=== PATIENT | male | born 1960 | race Caucasian/White ===

== ENCOUNTER 2022-02-24 13:11 | Inpatient (IN) ==
[2022-02-24 18:17] LABS: BASOPHILS % (AUTO) 0.4 % (0.2-1.0); EOSINOPHILS # (AUTO) 0.2 x10^3/uL (0.0-0.2); EOSINOPHILS % (AUTO) 2.6 % (0.9-2.9); HEMATOCRIT 47.4 % (42.0-54.0); HEMOGLOBIN 16.6 g/dL (13.5-18.0); LYMPHOCYTES # (AUTO) 1.9 X10^3/uL (1.3-2.9); LYMPHOCYTES % (AUTO) 20.7 % (21.0-51.0); MEAN CORPUSCULAR HEMOGLOBIN 32.5 pg (27.0-34.0); MEAN CORPUSCULAR HGB CONC 34.9 g/dL (33.0-35.0); MEAN CORPUSCULAR VOLUME 93.1 fL (80.0-100.0); MEAN PLATELET VOLUME 9.6 fL (7.4-11.0); MONOCYTES # (AUTO) 0.8 x10^3/uL (0.3-0.8); MONOCYTES % (AUTO) 9.1 % (0.0-13.0); NEUTROPHILS % (AUTO) 67.2 % (42.0-75.0); RED BLOOD COUNT 5.09 X10^6/uL (4.7-6.0); RED CELL DISTRIBUTION WIDTH 12.4 % (11.6-16.5)
[2022-02-24 18:25] LABS: ALANINE AMINOTRANSFERASE 107 Units/L (12-78); ALBUMIN 4.5 g/dL (3.4-5.0); ALKALINE PHOSPHATASE 74 Units/L (46-116); ASPARTATE AMINO TRANSFERASE 73 Units/L (15-37); BLOOD UREA NITROGEN 20 mg/dL (7-18); CALCIUM 8.8 mg/dL (8.5-10.1); CARBON DIOXIDE 29.7 mmol/L (21-32); CHLORIDE 97 mmol/L (98-107); CREATININE 1.24 mg/dL (0.70-1.30); SODIUM 134 mmol/L (136-145); TOTAL PROTEIN 8.3 g/dL (6.4-8.2); eGFR NON BLACK RACES > 60 (>60)
[2022-02-24] MEDS: LIPITOR TAB 40 MG PO SCH (20:37)
[2022-02-24] MEDS: XANAX PO PRN (20:37)
[2022-02-24] MEDS: CHECK PATCH XX SCH (20:38)
[2022-02-25 06:34] LABS: BASOPHILS % (AUTO) 0.2 % (0.2-1.0); EOSINOPHILS # (AUTO) 0.3 x10^3/uL (0.0-0.2); EOSINOPHILS % (AUTO) 3.4 % (0.9-2.9); HEMATOCRIT 46.4 % (42.0-54.0); HEMOGLOBIN 16.1 g/dL (13.5-18.0); LYMPHOCYTES # (AUTO) 1.6 X10^3/uL (1.3-2.9); LYMPHOCYTES % (AUTO) 20.4 % (21.0-51.0); MEAN CORPUSCULAR HEMOGLOBIN 32.3 pg (27.0-34.0); MEAN CORPUSCULAR HGB CONC 34.6 g/dL (33.0-35.0); MEAN CORPUSCULAR VOLUME 93.2 fL (80.0-100.0); MEAN PLATELET VOLUME 10.2 fL (7.4-11.0); MONOCYTES # (AUTO) 0.8 x10^3/uL (0.3-0.8); MONOCYTES % (AUTO) 9.4 % (0.0-13.0); NEUTROPHILS # (AUTO) 5.3 x10^3/uL (2.2-4.8); NEUTROPHILS % (AUTO) 66.6 % (42.0-75.0); RED BLOOD COUNT 4.98 X10^6/uL (4.7-6.0); RED CELL DISTRIBUTION WIDTH 12.4 % (11.6-16.5)
[2022-02-25 06:42] LABS: ALANINE AMINOTRANSFERASE 133 Units/L (12-78); ALBUMIN 4.2 g/dL (3.4-5.0); ALKALINE PHOSPHATASE 74 Units/L (46-116); ASPARTATE AMINO TRANSFERASE 94 Units/L (15-37); BLOOD UREA NITROGEN 19 mg/dL (7-18); CALCIUM 8.9 mg/dL (8.5-10.1); CARBON DIOXIDE 29.1 mmol/L (21-32); CHLORIDE 100 mmol/L (98-107); CREATININE 1.03 mg/dL (0.70-1.30); SODIUM 136 mmol/L (136-145); TOTAL PROTEIN 7.9 g/dL (6.4-8.2); eGFR NON BLACK RACES > 60 (>60)
[2022-02-25] MEDS: ASPIRIN PO SCH (08:36)
[2022-02-25] MEDS: ZYLOPRIM PO SCH (08:36)
[2022-02-25] MEDS: NORVASC TAB 10 MG PO SCH (08:37)
[2022-02-25] MEDS: PROTONIX TAB 40 MG PO SCH (08:37)
[2022-02-25] MEDS: COZAAR PO SCH (08:38)
[2022-02-25] MEDS: NICOTINE PATCH TD SCH ×2 (08:38→08:43)
[2022-02-25] MEDS: CHECK PATCH XX SCH ×2 (08:43→20:41)
[2022-02-25] MEDS: MOTRIN TAB 800 MG PO PRN ×2 (09:02→20:40)
[2022-02-25] MEDS: PLAVIX PO SCH (09:03)
[2022-02-25 09:08] VITALS: BMI 24.5
--- NOTE | 2022-02-25 11:55 | PT/OTEVAL ---
PT/OT OBJECTIVES - HISTORY Prescription: PT Consult Diagnosis: Acute CVA with L Residual Deficits Precautions: Fall Risk, L Hemiplegia s/p CVA, Severe Claustrophobia PMH: HTN, Anxiety, Claustrophobia Prior Level of Function: Independent Other: Per pt report, prior to CVA he was independent with all mobility tasks within home and community without an assistive device. 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 Pt resides in single story home with 5 steps to enter (without HR) with his . No DME. States that his son will be building a handrail for him prior to discharge home. - COGNITION Mental Status: Alert, Oriented, Name, Date, Place, Purpose Communication Status: Verbal Ability to Follow Directions: 3 Step Memory Loss: None - AWARENESS Left Comments: Pt requires minimal cues to for LLE placement during standing tasks and for LUE. Pt's LUE is currently flaccid. - PAIN Back Pain Scale: Discomfort (1-2) Comments: Reports chronic back pain - TRANSFERS Supine to Sit: Minimal Sit to Stand: Minimal Sit or Stand Pivot: Minimal - BALANCE Static Sitting: Good Standing: Fair Balance Comment: Standing: Fair- Dynamic Sitting: Good Standing: Poor - NEUROMOTOR/SENSATION Right Lower Ext Sensation: WFL Coordination: WFL Proprioception: WFL Left Lower Ext Sensation: Impaired Coordination: Impaired Proprioception: Impaired Comments: Reports of burning sensation to L foot (mostly plantar aspect). Sensation intact to light touch. - HAND DOMINANCE Extremity Function: Hand Dominance: Right - ROM Right LE ROM: WFL Muscle Tone: WFL Left Hip ROM: WFL Muscle Tone: Impaired Comment: Pt with slight hypotonicity noted. - STRENGTH Right LE Strength Number: 5 Left Hip Strength Number: 3 Other comment: 3-/5 Left Knee Strength Number: 2 Other comment: 2+/5 Left Ankle Strength Number: 2 Other comment: 2+/5 - GAIT Pt. ambulates how many feet?: 125 Amount of assistance required: Minimal Comments: Pt used hemiwalker, decreased L knee stability noted. AFO donned. PT/OT ASSESSMENT - PT Problem List: Decreased Bed Mobility, Decreased Transfers, Decreased Gait, Decreased Balance, Decreased Safety, Decreased LE Strength - PT GOALS Short Term Goals Days: 10 Mobility: Pt will perform bed mobility tasks with supervision. Transfers: Pt will perform functional transfers with CGA. Gait: Pt will ambulate 300ft with hemiwalker with mod I Balance: Pt will increase static standing balance to fair+/good- Director Call Goals Days: 20 Mobility: Pt will perform bed mobility tasks with mod I Transfers: Pt will perform functional transfers with mod I Gait: Pt will ambulate 500ft with LRAD with mod I Balance: Pt will increase dynamic standing balance to fair/fair+ ROM/Strength: Pt will increase LLE strength by 1 MMT grade Others: Pt will ascend/descend 5 stairs with mod I with HR - PATIENT GOALS Patient/Family Goals: "I just want to work hard and get as independent as I can" Goals Discussed with Patient/Family: Yes Rehabilitation Potential: Good to meet stated goals Justification for Potential: Facilitate highest level of function & safe discharge planning Weakness and Barriers: None - PLAN Suggested Treatment Plan: Bed Mobility Training, Therapeutic Activity, Gait Training, Neuro Re-education, Therapeutic Ex with HEP, Patient Education, Family Education - FREQUENCY AND DURATION PT: 5x per week x 20 days Expected Continuation of Care at Discharge: Outpatient Therapy Anticipated Equipment Needs: TBD pending pt progress, pt will probably require an AD for ambulation.
--- NOTE | 2022-02-25 14:20 | PT/OTEVAL ---
PT/OT OBJECTIVES - HISTORY Prescription: OT consult Diagnosis: CVA with L residual deficits Precautions: fall risk PMH: HTN, Anxiety, claustrophobia Prior Level of Function: Independent Other: Prior hospitalization, patient was independent with ADLs and IADLs. Pt still works and drives. Pt lives in a single level home with bathroom and bedroom at main level. His home has 3 steps to the carport and 5 steps at the back but no hand rails. However, pt is planning to have HR installed now. Pt has no repotrted DMEs at this time. - COGNITION Mental Status: Alert, Oriented, Name, Date, Place, Purpose Communication Status: Verbal Ability to Follow Directions: 3 Step - AWARENESS Left Comments: Pt requires minimal cues to for LLE placement during standing tasks and for LUE. Pt's LUE is currently flaccid. - PAIN Back Pain Scale: Discomfort (1-2) Comments: Reports chronic back pain - TRANSFERS Sit to Stand: Minimal Sit to Stand Comment: required hand held assist but was able to weight shift. Sit or Stand Pivot: Moderate - ADL'S Feeding: Setup Grooming: Setup Upper Body ADL: Moderate Lower Body ADL: Moderate Toileting: Moderate - BALANCE Static Sitting: Good Standing: Fair Balance Comment: Standing: Fair- Dynamic Sitting: Good Standing: Poor - NEUROMOTOR/SENSATION Right Lower Ext Sensation: WFL Coordination: WFL Proprioception: WFL Left Lower Ext Sensation: Impaired Coordination: Impaired Proprioception: Impaired Comments: Reports of burning sensation to L foot (mostly plantar aspect). Sensation intact to light touch. Right Upper Ext Sensation: WFL Coordination: WFL Proprioception: WFL Left Upper Ext Sensation: Impaired Coordination: Impaired Proprioception: Impaired - HAND DOMINANCE Extremity Function: Hand Dominance: Right - ROM Left UE ROM: Impaired Muscle Tone: Impaired Right UE ROM: WFL Muscle Tone: WFL - STRENGTH Right LE Strength Number: 5 Left Hip Strength Number: 3 Other comment: 3-/5 Left Knee Strength Number: 2 Other comment: 2+/5 Left Ankle Strength Number: 2 Other comment: 2+/5 Left UE Strength Number: 1 Right UE Strength Number: 4 PT/OT ASSESSMENT - OT Problem List: Decreased Mobility ADL's, Decreased Safety Aware, Decreased Dressing, Decreased Bathing, Decreased Grooming, Decreased UE Strength, Other Other, comment: decreased functional activity tolerance - PT GOALS Short Term Goals Days: 10 Mobility: Pt will perform bed mobility tasks with supervision. Transfers: Pt will perform functional transfers with CGA. Gait: Pt will ambulate 300ft with hemiwalker with mod I Balance: Pt will increase static standing balance to fair+/good- Metal Fence Erector Goals Days: 20 Mobility: Pt will perform bed mobility tasks with mod I Transfers: Pt will perform functional transfers with mod I Gait: Pt will ambulate 500ft with LRAD with mod I Balance: Pt will increase dynamic standing balance to fair/fair+ ROM/Strength: Pt will increase LLE strength by 1 MMT grade Others: Pt will ascend/descend 5 stairs with mod I with HR - OT GOALS Metal Fence Erector Goals Days: 20 Mobility for ADL's: Pt will improve toilet t/f with modified [place] with AE as needed Safety Awareness: Pt will demonstrate G safety awareness to decrease fall risk Dressing: Pt will perform UB/LB dressing modified [place] with AE as needed. Bathing: Pt will improve bathing skills with modified [place] Grooming: Pt will improve grooming skills to independent level Upper Ext. Strength/Use: Pt will increase UE strength to +1 mm grade to increase ADL and transfers Other: Pt will imporve F.A.T. to G to increase efficiency with ADL Short Term Goals Days: 10 Mobility for ADL's: Pt will improve toilet t/f with min A with AE as needed Dressing: Pt will perform UB/LB dressing to min A with AE as needed. Bathing: Pt will improve bathing skills with min A Grooming: Pt will improve grooming skills to min A Upper Ext. Strength/Use: Pt will be educated on self AAROM on L UE to increase UE strength for ADLs Other: Pt will imporve F.A.T. to F+ to increase efficiency with ADL - PATIENT GOALS Patient/Family Goals: return to PLOF Goals Discussed with Patient/Family: Yes Rehabilitation Potential: good Justification for Potential: higher level of PLOF - PLAN Suggested Treatment Plan: Therapeutic Activity, Self Care Training, Neuro Re- education, Therapeutic Ex with HEP, Patient Education, Family Education - FREQUENCY AND DURATION OT: 5x a week x hospital stay Expected Continuation of Care at Discharge: Determined on Progress
[2022-02-25] MEDS: LIPITOR TAB 40 MG PO SCH (20:39)
[2022-02-25] MEDS: XANAX PO PRN (20:40)
[2022-02-26] MEDS: CHECK PATCH XX SCH ×2 (08:23→20:19)
[2022-02-26] MEDS: MOTRIN TAB 800 MG PO PRN ×2 (08:30→20:20)
[2022-02-26] MEDS: ASPIRIN PO SCH (08:45)
[2022-02-26] MEDS: COZAAR PO SCH (08:45)
[2022-02-26] MEDS: PROTONIX TAB 40 MG PO SCH (08:46)
[2022-02-26] MEDS: ZYLOPRIM PO SCH (08:46)
[2022-02-26] MEDS: NICOTINE PATCH TD SCH ×2 (08:46→10:52)
[2022-02-26] MEDS: NORVASC TAB 10 MG PO SCH (08:46)
--- NOTE | 2022-02-26 08:46 | DR.H&P ---
H&P History & Physical for Day of: H&P Date: 02/25/22 Chief Complaint Chief Complaint: Physical rehab post CVA Left hemiparesis Allergies Allergies Allergy/AdvReac Type Severity Reaction Status Date / Time No Known Drug Allergies Allergy Verified 02/24/22 18:25 History of Present Illness History of Present Illness: Pt is a 61 year old male past medical history of hypertension, hyperlipidemia, anxiety, admitted as swing bed status for physical therapy and rehabilitation. He is s/p CVA that resulted in left hemiparesis. MRI brain showed: small area of acute/subacute infarct involving the right subinsular region extending up through the coronal radiata. On exam patient does have left hemiparesis, more pronounced in left upper extremity. Will restart and order patient's home medications and recommended medications from hospital discharge. Continue to monitor and follow up patient progress. Past Medical History Past Medical History: Anxiety, Dyslipidemia and Hypertension Social History Does patient currently use any type of tobacco product: Yes Have you used tobacco products in the last 12 months: Yes Type of Tobacco Use: Cigarettes How many years tobacco product used: 10 Does any household member use tobacco: No Alcohol Use: Occasionally Medications Home Medications: No Known Drug Allergies Allergy (Verified 02/24/22 18:25) CONTINUE taking the following medications allopurinol 300 mg tablet 300 mg PO DAILY 02/24/22 [History] alprazolam 0.5 mg tablet (Xanax) 0.5 mg PO TID PRN Anxiety 02/24/22 [History] amlodipine 10 mg tablet (Norvasc) 10 mg PO DAILY 02/24/22 [History] aspirin 325 mg tablet 325 mg PO DAILY 02/24/22 [History] atorvastatin 40 mg tablet 40 mg PO HS 02/24/22 [History] losartan 50 mg tablet 50 mg PO DAILY 02/24/22 [History] nicotine 14 mg/24 hr daily transdermal patch 14 mg topical DAILY 02/24/22 [History] pantoprazole 40 mg tablet,delayed release (Protonix) 40 mg PO DAILY 02/24/22 [History] Labs Result Diagrams: 02/25/22 05:54 02/25/22 05:54 Labs: Laboratory WBC 8.0 X10^3/uL (3.6-10.0) 02/25/22 05:54 RBC 4.98 X10^6/uL (4.7-6.0) 02/25/22 05:54 Hgb 16.1 g/dL (13.5-18.0) 02/25/22 05:54 Hct 46.4 % (42.0-54.0) 02/25/22 05:54 MCV 93.2 fL (80.0-100.0) 02/25/22 05:54 MCH 32.3 pg (27.0-34.0) 02/25/22 05:54 MCHC 34.6 g/dL (33.0-35.0) 02/25/22 05:54 RDW 12.4 % (11.6-16.5) 02/25/22 05:54 Plt Count 210 X10^3/uL (150.0-450.0) 02/25/22 05:54 MPV 10.2 fL (7.4-11.0) 02/25/22 05:54 Neut % (Auto) 66.6 % (42.0-75.0) 02/25/22 05:54 Lymph % (Auto) 20.4 % (21.0-51.0) L 02/25/22 05:54 [place] % (Auto) 9.4 % (0.0-13.0) 02/25/22 05:54 Eos % (Auto) 3.4 % (0.9-2.9) H 02/25/22 05:54 Baso % (Auto) 0.2 % (0.2-1.0) 02/25/22 05:54 Neut # (Auto) 5.3 x10^3/uL (2.2-4.8) H 02/25/22 05:54 Lymph # (Auto) 1.6 X10^3/uL (1.3-2.9) 02/25/22 05:54 [place] # (Auto) 0.8 x10^3/uL (0.3-0.8) 02/25/22 05:54 Eos # (Auto) 0.3 x10^3/uL (0.0-0.2) H 02/25/22 05:54 Baso # (Auto) 0.0 X10^3/uL (0.0-0.1) 02/25/22 05:54 Absolute Nucleated RBC 0.1 /100WBC 02/25/22 05:54 Sodium 136 mmol/L (136-145) 02/25/22 05:54 Corrected Sodium TNP 02/25/22 05:54 Potassium 4.3 mmol/L (3.5-5.1) 02/25/22 05:54 Chloride 100 mmol/L (98-107) 02/25/22 05:54 Carbon Dioxide 29.1 mmol/L (21-32) 02/25/22 05:54 BUN 19 mg/dL (7-18) H 02/25/22 05:54 Creatinine 1.03 mg/dL (0.70-1.30) 02/25/22 05:54 Est GFR (MDRD) Af Amer > 60 (>60) 02/25/22 05:54 Est GFR (MDRD) Non-Af > 60 (>60) 02/25/22 05:54 Glucose 91 mg/dL (65-99) 02/25/22 05:54 Calcium 8.9 mg/dL (8.5-10.1) 02/25/22 05:54 Corrected Calcium TNP 02/25/22 05:54 Total Bilirubin 0.70 mg/dL (0.2-1.0) 02/25/22 05:54 AST 94 Units/L (15-37) H 02/25/22 05:54 ALT 133 Units/L (12-78) H 02/25/22 05:54 Alkaline Phosphatase 74 Units/L (46-116) 02/25/22 05:54 Total Protein 7.9 g/dL (6.4-8.2) 02/25/22 05:54 Albumin 4.2 g/dL (3.4-5.0) 02/25/22 05:54 Globulin 3.7 g/dL (2.5-4.5) 02/25/22 05:54 Albumin/Globulin Ratio 1.1 Ratio (1.1-2.1) 02/25/22 05:54 Review of Systems Constitutional: No Symptoms Reported Eyes: No Symptoms Reported ENT: No Symptoms Reported Respiratory: No Symptoms Reported Cardiovascular: No Symptoms Reported Gastrointestinal: No Symptoms Reported Genitourinary: No Symptoms Reported Musculoskeletal: No Symptoms Reported Skin: No Symptoms Reported Neurological: Weakness (LUE ) and Numbness Physical Exam Vital Signs: Temperature 98 F Pulse Rate [Right Radial] 107 Respiratory Rate 20 Blood Pressure [Right Arm] 124/79 O2 Sat by Pulse Oximetry 97 Oriented: Normal Eyes: Normal Ear: Normal Nose: Normal Throat: Normal Respiratory: Clear Throughout Cardiovascular: Normal : Normal Auscultation: Bowel Sounds: Normal Palpation: Normal Tenderness: Normal Skin: Normal Musculoskeletal: Left, Arm, Motor Deficit and Sensory Deficit Psychiatric: Normal Mood Description: Calm and Appropriate Affect: Normal Speech Pattern: Clear and Appropriate Assessment/Plan (1) Status post CVA: Status: Acute (2) Left hemiparesis: Status: Acute (3) Monoplegia: Status: Acute (4) Hyperlipidemia: Status: Acute (5) Hypertension: Status: Acute Review H&P Reviewed: Yes Patient was examined?: Yes
[2022-02-26] MEDS: PLAVIX PO SCH (08:57)
[2022-02-26] MEDS: TYLENOL 500 MG TAB EXTRA STRENGTH PO PRN (16:01)
[2022-02-26] MEDS: XANAX PO PRN (20:19)
[2022-02-26] MEDS: LIPITOR TAB 40 MG PO SCH (20:20)
[2022-02-27] MEDS: ZYLOPRIM PO SCH (08:45)
[2022-02-27] MEDS: PROTONIX TAB 40 MG PO SCH (08:45)
[2022-02-27] MEDS: COZAAR PO SCH (08:45)
[2022-02-27] MEDS: NORVASC TAB 10 MG PO SCH (08:45)
[2022-02-27] MEDS: ASPIRIN PO SCH (08:45)
[2022-02-27] MEDS: PLAVIX PO SCH (09:19)
[2022-02-27] MEDS: CHECK PATCH XX SCH ×2 (09:20→20:20)
[2022-02-27] MEDS: NICOTINE PATCH TD SCH (17:19)
[2022-02-27] MEDS: XANAX PO PRN (20:16)
[2022-02-27] MEDS: MOTRIN TAB 800 MG PO PRN (20:17)
[2022-02-27] MEDS: LIPITOR TAB 40 MG PO SCH (20:18)
[2022-02-28 05:03] LABS: BASOPHILS % (AUTO) 0.5 % (0.2-1.0); EOSINOPHILS # (AUTO) 0.3 x10^3/uL (0.0-0.2); EOSINOPHILS % (AUTO) 4.1 % (0.9-2.9); HEMATOCRIT 43.7 % (42.0-54.0); HEMOGLOBIN 15.2 g/dL (13.5-18.0); LYMPHOCYTES # (AUTO) 1.6 X10^3/uL (1.3-2.9); LYMPHOCYTES % (AUTO) 20.8 % (21.0-51.0); MEAN CORPUSCULAR HEMOGLOBIN 32.1 pg (27.0-34.0); MEAN CORPUSCULAR HGB CONC 34.7 g/dL (33.0-35.0); MEAN CORPUSCULAR VOLUME 92.4 fL (80.0-100.0); MEAN PLATELET VOLUME 9.8 fL (7.4-11.0); MONOCYTES # (AUTO) 0.8 x10^3/uL (0.3-0.8); MONOCYTES % (AUTO) 11.2 % (0.0-13.0); NEUTROPHILS # (AUTO) 4.8 x10^3/uL (2.2-4.8); NEUTROPHILS % (AUTO) 63.4 % (42.0-75.0); RED BLOOD COUNT 4.72 X10^6/uL (4.7-6.0); RED CELL DISTRIBUTION WIDTH 12.4 % (11.6-16.5); WHITE BLOOD COUNT 7.6 X10^3/uL (3.6-10.0)
[2022-02-28 05:18] LABS: ALANINE AMINOTRANSFERASE 146 Units/L (12-78); ALBUMIN 3.8 g/dL (3.4-5.0); ALKALINE PHOSPHATASE 71 Units/L (46-116); ASPARTATE AMINO TRANSFERASE 56 Units/L (15-37); BLOOD UREA NITROGEN 21 mg/dL (7-18); CALCIUM 8.5 mg/dL (8.5-10.1); CARBON DIOXIDE 29.3 mmol/L (21-32); CHLORIDE 100 mmol/L (98-107); CREATININE 0.99 mg/dL (0.70-1.30); SODIUM 137 mmol/L (136-145); TOTAL PROTEIN 7.1 g/dL (6.4-8.2); eGFR NON BLACK RACES > 60 (>60)
[2022-02-28] MEDS: CHECK PATCH XX SCH ×2 (08:50→20:23)
[2022-02-28] MEDS: ASPIRIN EC 81 MG PO SCH (08:50)
[2022-02-28] MEDS: COZAAR PO SCH (08:51)
[2022-02-28] MEDS: NICOTINE PATCH TD SCH (08:51)
[2022-02-28] MEDS: PROTONIX TAB 40 MG PO SCH (08:51)
[2022-02-28] MEDS: NORVASC TAB 10 MG PO SCH (08:51)
[2022-02-28] MEDS: PLAVIX PO SCH (08:51)
[2022-02-28] MEDS: ZYLOPRIM PO SCH (08:51)
--- NOTE | 2022-02-28 13:59 | PCM.PROG ---
Progress Note Progress Note for Day of Date of Exam: 02/28/22 Subjective Subjective: Pt is a 61 year old male past medical history of hypertension, hyperlipidemia, anxiety, admitted as swing bed status for physical therapy and rehabilitation. He is s/p CVA that resulted in left hemiparesis. MRI brain showed: small area of acute/subacute infarct involving the right subinsular region extending up through the coronal radiata. Labs: Wbc 7.6, Hgb 15.2, Plt 212, Na 137, K 3.8, Creatinine 0.99, Glucose 97. Home medications resumed. Continue to physical therapy, monitor, and follow up patient progress. Past Medical Family Social History Allergies: Allergies No Known Drug Allergies Allergy (Verified 02/24/22 18:25) Review of Systems ROS: No change since H&P Vital Signs and I&O's Vital Signs: Temperature 97.8 F Pulse Rate [Right Radial] 110 Respiratory Rate 20 Blood Pressure [Right Arm] 125/88 O2 Sat by Pulse Oximetry 97 Intake and Output: Intake & Output 02/25/22 02/26/22 02/27/22 02/28/22 23:59 23:59 23:59 23:59 Intake Total 1080 / 2586 1470 / 1470 2410 / 2410 240 / 240 Balance 1080 / 1080 1470 / 1470 2410 / 2410 240 / 240 Physical Exam Oriented: Normal Eyes: Normal Ear: Normal Nose: Normal Throat: Normal Respiratory: Normal Cardiovascular: Normal : Normal Auscultation: Bowel Sounds: Normal Tenderness: Normal Skin: Normal Musculoskeletal: Left, Arm, Leg, Motor Deficit and Sensory Deficit Psychiatric: Normal Mood Description: Calm and Appropriate Affect: Normal Speech Pattern: Clear and Appropriate Laboratory and Diagnostics Result Diagrams: 02/28/22 04:23 02/28/22 04:23 Labs: Laboratory WBC 7.6 X10^3/uL (3.6-10.0) 02/28/22 04:23 RBC 4.72 X10^6/uL (4.7-6.0) 02/28/22 04:23 Hgb 15.2 g/dL (13.5-18.0) 02/28/22 04:23 Hct 43.7 % (42.0-54.0) 02/28/22 04:23 MCV 92.4 fL (80.0-100.0) 02/28/22 04:23 MCH 32.1 pg (27.0-34.0) 02/28/22 04:23 MCHC 34.7 g/dL (33.0-35.0) 02/28/22 04:23 RDW 12.4 % (11.6-16.5) 02/28/22 04:23 Plt Count 212 X10^3/uL (150.0-450.0) 02/28/22 04:23 MPV 9.8 fL (7.4-11.0) 02/28/22 04:23 Neut % (Auto) 63.4 % (42.0-75.0) 02/28/22 04:23 Lymph % (Auto) 20.8 % (21.0-51.0) L 02/28/22 04:23 [place] % (Auto) 11.2 % (0.0-13.0) 02/28/22 04:23 Eos % (Auto) 4.1 % (0.9-2.9) H 02/28/22 04:23 Baso % (Auto) 0.5 % (0.2-1.0) 02/28/22 04:23 Neut # (Auto) 4.8 x10^3/uL (2.2-4.8) 02/28/22 04:23 Lymph # (Auto) 1.6 X10^3/uL (1.3-2.9) 02/28/22 04:23 [place] # (Auto) 0.8 x10^3/uL (0.3-0.8) 02/28/22 04:23 Eos # (Auto) 0.3 x10^3/uL (0.0-0.2) H 02/28/22 04:23 Baso # (Auto) 0.0 X10^3/uL (0.0-0.1) 02/28/22 04:23 Absolute Nucleated RBC 0.1 /100WBC 02/28/22 04:23 Sodium 137 mmol/L (136-145) 02/28/22 04:23 Corrected Sodium TNP 02/28/22 04:23 Potassium 3.8 mmol/L (3.5-5.1) 02/28/22 04:23 Chloride 100 mmol/L (98-107) 02/28/22 04:23 Carbon Dioxide 29.3 mmol/L (21-32) 02/28/22 04:23 BUN 21 mg/dL (7-18) H 02/28/22 04:23 Creatinine 0.99 mg/dL (0.70-1.30) 02/28/22 04:23 Est GFR (MDRD) Af Amer > 60 (>60) 02/28/22 04:23 Est GFR (MDRD) Non-Af > 60 (>60) 02/28/22 04:23 Glucose 97 mg/dL (65-99) 02/28/22 04:23 Calcium 8.5 mg/dL (8.5-10.1) 02/28/22 04:23 Corrected Calcium TNP 02/28/22 04:23 Total Bilirubin 0.50 mg/dL (0.2-1.0) 02/28/22 04:23 AST 56 Units/L (15-37) H 02/28/22 04:23 ALT 146 Units/L (12-78) H 02/28/22 04:23 Alkaline Phosphatase 71 Units/L (46-116) 02/28/22 04:23 Total Protein 7.1 g/dL (6.4-8.2) 02/28/22 04:23 Albumin 3.8 g/dL (3.4-5.0) 02/28/22 04:23 Globulin 3.3 g/dL (2.5-4.5) 02/28/22 04:23 Albumin/Globulin Ratio 1.2 Ratio (1.1-2.1) 02/28/22 04:23 Plan (1) Status post CVA: Status: Acute (2) Left hemiparesis: Status: Acute (3) Monoplegia: Status: Acute (4) Hyperlipidemia: Status: Acute (5) Hypertension: Status: Acute
[2022-02-28] MEDS: XANAX PO PRN (20:24)
[2022-02-28] MEDS: MOTRIN TAB 800 MG PO PRN (20:24)
[2022-02-28] MEDS: LIPITOR TAB 40 MG PO SCH (20:25)
[2022-03-01] MEDS: COZAAR PO SCH (08:13)
[2022-03-01] MEDS: PROTONIX TAB 40 MG PO SCH (08:13)
[2022-03-01] MEDS: ZYLOPRIM PO SCH (08:13)
[2022-03-01] MEDS: NORVASC TAB 10 MG PO SCH (08:13)
[2022-03-01] MEDS: PLAVIX PO SCH (08:13)
[2022-03-01] MEDS: ASPIRIN EC 81 MG PO SCH (08:13)
[2022-03-01] MEDS: CHECK PATCH XX SCH ×2 (08:18→20:51)
[2022-03-01] MEDS: NICOTINE PATCH TD SCH (08:18)
[2022-03-01] MEDS: TYLENOL 500 MG TAB EXTRA STRENGTH PO PRN (16:10)
[2022-03-01] MEDS: LIPITOR TAB 40 MG PO SCH (20:51)
[2022-03-01] MEDS: MOTRIN TAB 800 MG PO PRN (20:51)
[2022-03-01] MEDS: XANAX PO PRN (20:52)
[2022-03-02 04:56] LABS: BASOPHILS % (AUTO) 0.6 % (0.2-1.0); EOSINOPHILS # (AUTO) 0.3 x10^3/uL (0.0-0.2); EOSINOPHILS % (AUTO) 4.4 % (0.9-2.9); HEMATOCRIT 40.8 % (42.0-54.0); HEMOGLOBIN 14.6 g/dL (13.5-18.0); LYMPHOCYTES # (AUTO) 1.5 X10^3/uL (1.3-2.9); LYMPHOCYTES % (AUTO) 22.8 % (21.0-51.0); MEAN CORPUSCULAR HEMOGLOBIN 32.9 pg (27.0-34.0); MEAN CORPUSCULAR HGB CONC 35.7 g/dL (33.0-35.0); MEAN CORPUSCULAR VOLUME 92.2 fL (80.0-100.0); MEAN PLATELET VOLUME 9.2 fL (7.4-11.0); MONOCYTES # (AUTO) 0.7 x10^3/uL (0.3-0.8); MONOCYTES % (AUTO) 10.6 % (0.0-13.0); NEUTROPHILS % (AUTO) 61.6 % (42.0-75.0); RED BLOOD COUNT 4.43 X10^6/uL (4.7-6.0); RED CELL DISTRIBUTION WIDTH 12.2 % (11.6-16.5); WHITE BLOOD COUNT 6.6 X10^3/uL (3.6-10.0)
[2022-03-02 05:16] LABS: ALANINE AMINOTRANSFERASE 90 Units/L (12-78); ALBUMIN 3.6 g/dL (3.4-5.0); ALKALINE PHOSPHATASE 63 Units/L (46-116); ASPARTATE AMINO TRANSFERASE 40 Units/L (15-37); BLOOD UREA NITROGEN 24 mg/dL (7-18); CALCIUM 8.2 mg/dL (8.5-10.1); CARBON DIOXIDE 27.9 mmol/L (21-32); CHLORIDE 103 mmol/L (98-107); CREATININE 1.01 mg/dL (0.70-1.30); SODIUM 137 mmol/L (136-145); TOTAL PROTEIN 6.6 g/dL (6.4-8.2); eGFR NON BLACK RACES > 60 (>60)
[2022-03-02] MEDS: ZYLOPRIM PO SCH (08:20)
[2022-03-02] MEDS: ASPIRIN EC 81 MG PO SCH (08:20)
[2022-03-02] MEDS: PROTONIX TAB 40 MG PO SCH (08:20)
[2022-03-02] MEDS: COZAAR PO SCH (08:20)
[2022-03-02] MEDS: NORVASC TAB 10 MG PO SCH (08:20)
[2022-03-02] MEDS: PLAVIX PO SCH (08:23)
[2022-03-02] MEDS: NICOTINE PATCH TD SCH (08:24)
[2022-03-02] MEDS: CHECK PATCH XX SCH ×2 (08:25→20:40)
[2022-03-02] MEDS: TYLENOL 500 MG TAB EXTRA STRENGTH PO PRN (14:00)
[2022-03-02] MEDS: XANAX PO PRN (20:38)
[2022-03-02] MEDS: LIPITOR TAB 40 MG PO SCH (20:38)
[2022-03-02] MEDS: MOTRIN TAB 800 MG PO PRN (20:38)
[2022-03-03] MEDS ORDERED: BUTT CREAM (COMPOUND) TOP PRN (01:50)
[2022-03-03] MEDS ORDERED: BUTT CREAM (COMPOUND) ONE (01:51)
[2022-03-03] MEDS: COZAAR PO SCH (08:24)
[2022-03-03] MEDS: PLAVIX PO SCH (08:24)
[2022-03-03] MEDS: NORVASC TAB 10 MG PO SCH (08:24)
[2022-03-03] MEDS: ZYLOPRIM PO SCH (08:24)
[2022-03-03] MEDS: ASPIRIN EC 81 MG PO SCH (08:24)
[2022-03-03] MEDS: PROTONIX TAB 40 MG PO SCH (08:24)
[2022-03-03] MEDS: CHECK PATCH XX SCH (08:24)
[2022-03-03] MEDS: NICOTINE PATCH TD SCH (08:25)
[2022-03-03 09:22] VITALS: BP 132/83
[2022-03-03] MEDS: MOTRIN TAB 800 MG PO PRN (10:39)
--- NOTE | 2022-03-03 12:25 | W.DIS.FURT ---
Summary of Discharge Discharge Summary of Date Date of Exam: 03/03/22 Admission Date Date of Admission: 02/25/22 Admission Diagnosis Hospital Course: Pt is a 61 year old male past medical history of hypertension, hyperlipidemia, anxiety, admitted as swing bed status for physical therapy and rehabilitation. 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 MRI brain showed: small area of acute/subacute infarct involving the right subinsular region extending up through the coronal radiata. Labs: Wbc 6.6, Hgb 14.6, Plt 230, Na 137, K 3.7, Creatinine 1.01, Glucose 96. Pt continues to make progress with physical therapy. He will continue with outpatient physical therapy and rehab. Pt discharged in stable condition. Instructed to follow up with pcp in 1 week. Vital Signs: Vital Signs (72 hours) 02/28/22 19:00 02/28/22 19:00 02/28/22 19:00 Temperature 98.1 F Pulse Rate [Right Radial] 106 H Respiratory Rate 20 Blood Pressure [Right Arm] 135/77 O2 Sat by Pulse Oximetry 97 Oxygen Delivery Method Room Air Room Air Room Air 02/28/22 20:24 02/28/22 21:24 02/28/22 20:30 Temperature Pulse Rate [Right Radial] Respiratory Rate 18 18 Blood Pressure [Right Arm] O2 Sat by Pulse Oximetry Oxygen Delivery Method Room Air 03/01/22 07:00 03/01/22 07:00 03/01/22 07:00 Temperature 98.6 F Pulse Rate [Right Radial] 105 H Respiratory Rate 18 Blood Pressure [Right Arm] 125/77 O2 Sat by Pulse Oximetry Oxygen Delivery Method Room Air Room Air Room Air 03/01/22 09:08 03/01/22 16:10 03/01/22 17:10 Temperature Pulse Rate [Right Radial] Respiratory Rate 18 18 Blood Pressure [Right Arm] O2 Sat by Pulse Oximetry Oxygen Delivery Method Room Air 03/01/22 19:00 03/01/22 19:00 03/01/22 19:00 Temperature 98.3 F Pulse Rate [Right Radial] 99 H Respiratory Rate 20 Blood Pressure [Right Arm] 144/71 O2 Sat by Pulse Oximetry 97 Oxygen Delivery Method Room Air Room Air Room Air 03/01/22 20:51 03/01/22 21:00 03/01/22 21:51 Temperature Pulse Rate [Right Radial] Respiratory Rate 18 18 Blood Pressure [Right Arm] O2 Sat by Pulse Oximetry Oxygen Delivery Method Room Air 03/02/22 08:01 03/02/22 08:11 03/02/22 07:00 Temperature 97.8 F Pulse Rate [Right Radial] 91 H Respiratory Rate 20 Blood Pressure [Right Arm] 132/92 O2 Sat by Pulse Oximetry 97 Oxygen Delivery Method Room Air Room Air Room Air 03/02/22 08:35 03/02/22 14:00 03/02/22 15:00 Temperature Pulse Rate [Right Radial] Respiratory Rate 20 20 Blood Pressure [Right Arm] O2 Sat by Pulse Oximetry Oxygen Delivery Method Room Air 03/02/22 19:00 03/02/22 19:00 03/02/22 19:00 Temperature 98.1 F Pulse Rate [Right Radial] 86 Respiratory Rate 20 Blood Pressure [Right Arm] 133/78 O2 Sat by Pulse Oximetry 98 Oxygen Delivery Method Room Air Room Air Room Air 03/02/22 20:38 03/02/22 21:38 03/02/22 22:10 Temperature Pulse Rate [Right Radial] Respiratory Rate 20 20 Blood Pressure [Right Arm] O2 Sat by Pulse Oximetry Oxygen Delivery Method Room Air 03/03/22 08:22 03/03/22 08:27 03/03/22 07:00 Temperature 98.4 F Pulse Rate [Right Radial] 93 H Respiratory Rate 20 Blood Pressure [Right Arm] 132/83 O2 Sat by Pulse Oximetry 97 Oxygen Delivery Method Room Air Room Air Room Air 03/03/22 10:39 Temperature Pulse Rate [Right Radial] Respiratory Rate 20 Blood Pressure [Right Arm] O2 Sat by Pulse Oximetry Oxygen Delivery Method Labs: Laboratory Last Values WBC 6.6 X10^3/uL (3.6-10.0) 03/02/22 04:30 RBC 4.43 X10^6/uL (4.7-6.0) L 03/02/22 04:30 Hgb 14.6 g/dL (13.5-18.0) 03/02/22 04:30 Hct 40.8 % (42.0-54.0) L 03/02/22 04:30 MCV 92.2 fL (80.0-100.0) 03/02/22 04:30 MCH 32.9 pg (27.0-34.0) 03/02/22 04:30 MCHC 35.7 g/dL (33.0-35.0) H 03/02/22 04:30 RDW 12.2 % (11.6-16.5) 03/02/22 04:30 Plt Count 230 X10^3/uL (150.0-450.0) 03/02/22 04:30 MPV 9.2 fL (7.4-11.0) 03/02/22 04:30 Neut % (Auto) 61.6 % (42.0-75.0) 03/02/22 04:30 Lymph % (Auto) 22.8 % (21.0-51.0) 03/02/22 04:30 [place] % (Auto) 10.6 % (0.0-13.0) 03/02/22 04:30 Eos % (Auto) 4.4 % (0.9-2.9) H 03/02/22 04:30 Baso % (Auto) 0.6 % (0.2-1.0) 03/02/22 04:30 Neut # (Auto) 4.0 x10^3/uL (2.2-4.8) 03/02/22 04:30 Lymph # (Auto) 1.5 X10^3/uL (1.3-2.9) 03/02/22 04:30 [place] # (Auto) 0.7 x10^3/uL (0.3-0.8) 03/02/22 04:30 Eos # (Auto) 0.3 x10^3/uL (0.0-0.2) H 03/02/22 04:30 Baso # (Auto) 0.0 X10^3/uL (0.0-0.1) 03/02/22 04:30 Absolute Nucleated RBC 0.0 /100WBC 03/02/22 04:30 Sodium 137 mmol/L (136-145) 03/02/22 04:30 Corrected Sodium TNP 03/02/22 04:30 Potassium 3.7 mmol/L (3.5-5.1) 03/02/22 04:30 Chloride 103 mmol/L (98-107) 03/02/22 04:30 Carbon Dioxide 27.9 mmol/L (21-32) 03/02/22 04:30 BUN 24 mg/dL (7-18) H 03/02/22 04:30 Creatinine 1.01 mg/dL (0.70-1.30) 03/02/22 04:30 Est GFR (MDRD) Af Amer > 60 (>60) 03/02/22 04:30 Est GFR (MDRD) Non-Af > 60 (>60) 03/02/22 04:30 Glucose 96 mg/dL (65-99) 03/02/22 04:30 Calcium 8.2 mg/dL (8.5-10.1) L 03/02/22 04:30 Corrected Calcium TNP 03/02/22 04:30 Total Bilirubin 0.40 mg/dL (0.2-1.0) 03/02/22 04:30 AST 40 Units/L (15-37) H 03/02/22 04:30 ALT 90 Units/L (12-78) H 03/02/22 04:30 Alkaline Phosphatase 63 Units/L (46-116) 03/02/22 04:30 Total Protein 6.6 g/dL (6.4-8.2) 03/02/22 04:30 Albumin 3.6 g/dL (3.4-5.0) 03/02/22 04:30 Globulin 3.0 g/dL (2.5-4.5) 03/02/22 04:30 Albumin/Globulin Ratio 1.2 Ratio (1.1-2.1) 03/02/22 04:30 Reason For Visit: S/P CVA, L SIDE WEAKNESS, SWING BED Discharge Date Discharge Date: 03/03/22 Discharge Diagnosis All Active Problems (Updated 02/27/22 @ 13:19 by Yung Silver) Left hemiparesis (Acute) Hypertension (Acute) Hyperlipidemia (Acute) Monoplegia (Acute) Status post CVA (Acute) Plan of Treatment: Continue with present treatment and follow up plan. Pt is to keep follow up appointment as instructed and take medications as ordered. Discharge Medications Discharge Medications: No Known Drug Allergies Allergy (Verified 02/24/22 18:25) New Prescriptions allopurinol 300 mg tablet 300 mg PO DAILY 30 days #30 tabs 03/03/22 [Rx] alprazolam 0.5 mg tablet (Xanax) 0.5 mg PO DAILY PRN Anxiety 30 days #30 tabs 03/03/22 [Rx] amlodipine 10 mg tablet 10 mg PO DAILY 30 days #30 tabs 03/03/22 [Rx] aspirin 81 mg tablet,delayed release 81 mg PO DAILY 30 days #30 tabs 03/03/22 [Rx] atorvastatin 40 mg tablet 40 mg PO HS 30 days #30 tabs 03/03/22 [Rx] clopidogrel 75 mg tablet 75 mg PO DAILY 30 days #30 tabs 03/03/22 [Rx] losartan 50 mg tablet 50 mg PO DAILY 30 days #30 tabs 03/03/22 [Rx] pantoprazole 40 mg tablet,delayed release 40 mg PO DAILY 30 days #30 tabs 03/03/22 [Rx] Discharge Disposition Discharge Disposition: Home Discharge Condition: Stable Discharge Plan Discharge Plan Hospital Course: Pt is a 61 year old male past medical history of hypertension, hyperlipidemia, anxiety, admitted as swing bed status for physical therapy and rehabilitation. 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 MRI brain showed: small area of acute/subacute infarct involving the right subinsular region extending up through the coronal radiata. Labs: Wbc 6.6, Hgb 14.6, Plt 230, Na 137, K 3.7, Creatinine 1.01, Glucose 96. Pt continues to make progress with physical therapy. He will continue with outpatient physical therapy and rehab. Pt discharged in stable condition. Instructed to follow up with pcp in 1 week. Patient Disposition: HOME, SELF-CARE Condition: Stable Health Concerns: Post Hospitalization: new medications and changes needed to prevent readmission or further decline. Pt educated and given instructions on all concerns. Care Plan Goals: Problem: Activity Intolerance Goal: Increased tolerance to activity Instructions: Follow provided instructions. Follow up with primary physician as directed. Contact primary care physician or report to the closest Emergency Room if condition worsens. Plan of Treatment: Continue with present treatment and follow up plan. Pt is to keep follow up appointment as instructed and take medications as ordered. Prescriptions: New aspirin 81 mg Tablet,Delayed Release (Dr/Ec) 81 mg PO DAILY 30 Days Qty: 30 0RF losartan 50 mg Tablet 50 mg PO DAILY 30 Days Qty: 30 0RF atorvastatin 40 mg Tablet 40 mg PO HS 30 Days Qty: 30 0RF clopidogrel 75 mg Tablet 75 mg PO DAILY 30 Days Qty: 30 0RF amlodipine 10 mg Tablet 10 mg PO DAILY 30 Days Qty: 30 0RF pantoprazole 40 mg Tablet,Delayed Release (Dr/Ec) 40 mg PO DAILY 30 Days Qty: 30 0RF allopurinol 300 mg Tablet 300 mg PO DAILY 30 Days Qty: 30 0RF Changed alprazolam [Xanax] 0.5 mg Tablet 0.5 mg PO DAILY MDD 1 tab PRN (Reason: Anxiety) 30 Days Qty: 30 0RF Discontinued allopurinol [Zyloprim] 300 mg Tablet 300 mg PO DAILY amlodipine [Norvasc] 10 mg Tablet 10 mg PO DAILY aspirin 325 mg Tablet 325 mg PO DAILY atorvastatin 40 mg Tablet 40 mg PO HS losartan 50 mg Tablet 50 mg PO DAILY nicotine 14 mg/24 hr Patch 24 Hour 14 mg topical DAILY pantoprazole [Protonix] 40 mg Tablet,Delayed Release (Dr/Ec) 40 mg PO DAILY Follow ups/Referrals Follow ups/Referrals: [facility] Physical Therapy [Other] - 03/08/22 8:45 am (Referral sent on 03/01/22 @[facility] - Office to call patient's with appointment.) [facility] [Other] ([facility]-walker) Symone Mcdonald [REFERRING] - 03/10/22 1:15 pm (Bring medications, insurance card and ID to appointment.) Instructions Instructions: Fall Prevention in the Home, Adult, [id number], Hospital Discharge After a Stroke, Stroke Prevention, [id number], Warning Signs of a Stroke, Hypertension, Adult, [id number], How to Use a Walker, Ischemic Stroke, Managing Your Hypertension, Physical Therapy After a Stroke, Hemiparesis Stand Alone Forms: Excuse From Work or School, Precautions for COVID19, [facility], Patient Portal, Social Distancing
== END 2022-03-03 13:10 | disposition home or self-care (01) | DRG 57 ==
LOC: MED/SURG 16:58
PROVIDERS: ADMIT Family Medicine; ATTEND Family Medicine
DX: R47.1 Dysarthria and anarthria; E78.5 Hyperlipidemia, unspecified; F41.8 Other specified anxiety disorders; I10 Essential (primary) hypertension; Z72.0 Tobacco use; Z51.89 Encounter for other specified aftercare; I69.354 Hemiplegia and hemiparesis following cerebral infarction affecting left non-dominant side